=== PATIENT | female | born 1950 | race American Indian/Alaskan Native ===

== ENCOUNTER 2017-10-28 08:17 | Outpatient (CLI) | payer BC ==
[2017-10-28 08:47] LABS: Bilirubin,Urine NEG (Negative); Blood,Urine NEG (Negative); Color,Urine Yellow (Yellow); Mucus,Urine FEW /HPF; Protein,Urine <15 mg/dL mg/dL (Negative); Urobilinogen,Urine < 2.0 mg/dL (<2.0); WBC,Urine < 1.0 /HPF (0.0-6.0)
[2017-10-28 08:52] LABS: Basophils # (Auto) 0.1 K/mm3 (0.0-0.1); Basophils % (Auto) 1.2 % (0.0-1.8); Eosinophils # (Auto) 0.3 K/mm3 (0.0-0.4); Eosinophils % (Auto) 4.2 % (0.0-4.3); Hematocrit 43.8 % (30.3-42.9); Hemoglobin 14.2 gm/dl (10.1-14.3); Lymphocytes % (Auto) 28.6 % (13.4-35.0); Mean Corpuscular HGB Conc 33 % (30-34); Mean Corpuscular Hemoglobin 27 pg (28-32); Mean Corpuscular Volume 84 fl (79-97); Monocytes # (Auto) 0.5 K/mm3 (0.0-0.8); Monocytes % (Auto) 6.6 % (0.0-7.3); Platelet Count 205 K/mm3 (140-440); Red Blood Count 5.21 M/mm3 (3.65-5.03); Red Cell Distribution Width 14.7 % (13.2-15.2)
[2017-10-28 10:07] LABS: Alanine Aminotransferase 14 units/L (7-56); Albumin 3.9 g/dL (3.9-5); BUN/Creatinine Ratio 15; Blood Urea Nitrogen 12 mg/dL (7-17); Calcium 9.6 mg/dL (8.4-10.2); Chol/HDL Ratio 3.76 %; HDL Cholesterol 46 mg/dL (40-59); Hemolysis Index 2; LDL Cholesterol,Direct 122 mg/dL (50-130)
[2017-10-28 10:14] LABS: Free T4 (Free Thyroxine) 1.23 ng/dL (0.76-1.46)
[2017-10-29 20:34] LABS: Microalbumin/Creatinine Ratio 6.7 ug/mg
== END 2017-10-28 08:18 | disposition home or self-care (01) ==
LOC: LAB 08:17
PROVIDERS: ATTEND Nurse Practitioner Family
DX: Z00.01 Encounter for general adult medical examination with abnormal findings (principal); E11.9 Type 2 diabetes mellitus without complications; E78.5 Hyperlipidemia, unspecified; E05.90 Thyrotoxicosis, unspecified without thyrotoxic crisis or storm
CPT/HCPCS: 36415; 80053; 80061; 81001; 82043; 83036; 84439; 84443; 85025

== ENCOUNTER 2018-07-14 10:11 | Outpatient (CLI) | payer BC ==
--- NOTE | 2018-07-14 10:56 | XRay Report ---
ROUTINE CHEST, TWO VIEWS: HISTORY: Cough. No comparison at this facility. The trachea, heart, mediastinal contour, lung fernandez and bony thorax are unremarkable. Mild to moderate thoracic spondylosis is noted. IMPRESSION: Unremarkable chest x-ray. No evidence for pneumonia.
== END 2018-07-14 10:12 | disposition home or self-care (01) ==
LOC: XRAY 10:11
PROVIDERS: ATTEND Family Medicine
DX: R05 Cough (principal)
CPT/HCPCS: 71046

== ENCOUNTER 2020-06-13 08:25 | Outpatient (CLI) | payer BC ==
[2020-06-13 10:48] LABS: Bilirubin,Urine NEG (Negative); Blood,Urine NEG (Negative); Color,Urine Yellow (Yellow); Mucus,Urine FEW /HPF; Protein,Urine <15 mg/dL mg/dL (Negative); Urobilinogen,Urine < 2.0 mg/dL (<2.0)
[2020-06-13 10:48] LABS: Basophils # (Auto) 0.1 K/mm3 (0.0-0.1); Basophils % (Auto) 1.6 % (0.0-1.8); Eosinophils # (Auto) 0.3 K/mm3 (0.0-0.4); Eosinophils % (Auto) 3.7 % (0.0-4.3); Hematocrit 43.4 % (30.3-42.9); Hemoglobin 14.3 gm/dl (10.1-14.3); Lymphocytes % (Auto) 28.6 % (13.4-35.0); Mean Corpuscular HGB Conc 33 % (30-34); Mean Corpuscular Volume 86 fl (79-97); Monocytes # (Auto) 0.4 K/mm3 (0.0-0.8); Monocytes % (Auto) 5.7 % (0.0-7.3); Platelet Count 211 K/mm3 (140-440); Red Blood Count 5.04 M/mm3 (3.65-5.03); Red Cell Distribution Width 15.7 % (13.2-15.2)
[2020-06-13 11:07] LABS: Chol/HDL Ratio 3.37 %
[2020-06-13 12:29] LABS: Creatinine,Urine 144.3 mg/dL (0.1-20.0)
[2020-06-13 12:31] LABS: Microalbumin/Creatinine Ratio 16.6 ug/mg
== END 2020-06-13 08:26 | disposition home or self-care (01) ==
LOC: ECHO 08:25
PROVIDERS: ATTEND Nurse Practitioner Family
DX: I35.1 Nonrheumatic aortic (valve) insufficiency (principal); E78.5 Hyperlipidemia, unspecified; E11.9 Type 2 diabetes mellitus without complications; I49.3 Ventricular premature depolarization; Z79.899 Other long term (current) drug therapy
CPT/HCPCS: 36415; 80061; 81001; 82043; 83036; 84443; 85025; 93306

== ENCOUNTER 2022-01-03 12:31 | Outpatient (CLI) | payer BC ==
--- NOTE | 2022-01-03 15:39 | XRay Report ---
LEFT HIP 3 VIEW(S) INDICATION / CLINICAL INFORMATION: LEFT HIP PAIN COMPARISON: None available. FINDINGS: BONES / JOINT(S): No acute fracture or subluxation. Mild bilateral hip osteoarthrosis. Partially visu alized degenerative changes of the lower lumbar spine. SOFT TISSUES: No significant abnormality. ADDITIONAL FINDINGS: None. IMPRESSION: 1. Mild bilateral hip osteoarthrosis. 2. No acute displaced fracture. Signer Name: Clovis Triplett MD Signed: 01/03/2022 3:34 PM Workstation Name: [email or web address]
--- NOTE | 2022-01-03 15:40 | XRay Report ---
CERVICAL SPINE 3 VIEWS INDICATION / CLINICAL INFORMATION: BACK PAIN. COMPARISON: None available. FINDINGS: BONES / JOINT(S): No acute fracture or subluxation. No significant disc space narrowing. Prominent mu ltilevel anterior osteophyte formation. Mild underlying osteopenia. SOFT TISSUES: No significant abnormality. ADDITIONAL FINDINGS: None. Signer Name: Migel Loco MD Signed: 01/03/2022 3:36 PM Workstation Name: [email or web address]
== END 2022-01-03 12:32 | disposition home or self-care (01) ==
LOC: XRAY 12:31
PROVIDERS: ATTEND Family Medicine
DX: M16.12 Unilateral primary osteoarthritis, left hip (principal); M85.88 Other specified disorders of bone density and structure, other site
CPT/HCPCS: 72040